=== PATIENT | female | born 1970 | race Two or more races ===

== ENCOUNTER 2020-06-14 09:34 | Outpatient (RCR) | payer BC, SELFPAY ==
[2020-06-14] MEDS: COVID-19 VACC, MRNA(PFIZER)/PF 30 MCG/0.3 ML SYRINGE IM (08:23)
[2020-07-05] MEDS: COVID-19 VACC, MRNA(PFIZER)/PF 30 MCG/0.3 ML SYRINGE IM (08:14)
== END 2020-06-14 23:59 ==
LOC: IMMUN 09:34
PROVIDERS: Visit Provider Family Medicine
DX: Z23 Encounter for immunization (principal)
CPT/HCPCS: 0001A; 0002A; 91300